=== PATIENT | male | born 1950 ===

== ENCOUNTER 2017-04-21 12:38 | Emergency (ER) | payer MEDICARE ==
[2017-04-21 12:55] VITALS: BP 146/72
--- NOTE | 2017-04-21 13:15 | UC ---
Upper Extremity HPI - History of Current Complaint Chief Complaint: UCUpperExtremity Stated Complaint: R WRIST INJURY Time Seen by Provider: 04/21/17 13:14 - Allergies/Home Medications Allergies/Adverse Reactions: Allergies Allergy/AdvReac Type Severity Reaction Status Date / Time No Known Allergies Allergy Verified 04/21/17 12:43 Home Medications: Home Medications Isosorbide (Bulk) [Isosorbide] 1 pow XX 04/21/17 [History] Telmisartan [Micardis] 20 mg PO 04/21/17 [History] PMH/Surg Hx/FS Hx/Imm Hx - Surgical History Surgical History: Yes Surgery Procedure, Year, and Place: BACK SURGERY 1967 - Family History Known Family History: Positive: Hypertension - Social History Alcohol Use: None Substance Use Type: None Smoking Status (MU): Never Smoked Tobacco - Immunization History Most Recent Influenza Vaccination: never Most Recent Tetanus Shot: 2005 Most Recent Pneumonia Vaccination: never Physical Exam Vital Signs: Initial Vital Signs Temp 97.5 F 04/21/17 12:43 Pulse 53 04/21/17 12:43 Resp 18 04/21/17 12:43 BP 146/72 04/21/17 12:43 Pulse Ox 100 04/21/17 12:43 Discharge - Discharge Plan Condition: Stable Disposition: HOME Referrals: Chai Villafuerte MD [Primary Care Provider] - Additional Instructions: If you develop a fever, SOB, chest pain, new or worsening symptoms - please call your PCP or go to the ED. Your blood pressure was high at todays visit. Please see your primary provider within 4 weeks for recheck and re-evaluation.
--- NOTE | 2017-04-21 13:54 | RAD ---
INDICATION: Right wrist injury. TECHNIQUE: 3 views of the right wrist were obtained. FINDINGS: There is diffuse soft tissue swelling. The bones are in normal alignment. There are faint renal lucent lines which project over the distal radius extending to the articular surface suggestive of a nondisplaced fracture. 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 IMPRESSION: PROBABLE NONDISPLACED FRACTURE OF THE DISTAL RADIUS.
--- NOTE | 2017-04-21 13:58 | UC ---
Eliza Rojas Alfonso, scribed for Pilar Spann MD on 04/21/17 at 1337 . Upper Extremity HPI - HPI Summary HPI Summary: This patient is a 67 year old M presenting to [facility] with a chief complaint of right wrist pain s/p a mechanical fall 1 week ago. Pt reports he was running backwards when he fell causing hyper extension of wrist on palm. The patient rates the aching pain 3/10 in severity. Symptoms alleviated by nothing. Patient reports limited ROM secondary to pain. Patient denies elbow pain, shoulder pain , head trauma, bleeding, finger numbness, and finger tingling. + hand edema no other injuries. Pt RHD. Pt came today because continued discomfort and swelling although reports improved Patients medication reviewed this visit. - History of Current Complaint Chief Complaint: UCUpperExtremity Stated Complaint: R WRIST INJURY Time Seen by Provider: 04/21/17 13:14 Hx Obtained From: Patient Onset/Duration: Sudden Onset, Lasting Weeks - 1, Still Present Severity Currently: Mild Pain Intensity: 3 Pain Scale Used: 0-10 Numeric Location Of Pain: Is Discrete @ - right wrist Aggravating Factor(s): Movement, Flexion, Extension Alleviating Factor(s): Nothing Associated Signs And Symptoms: Positive: Other - Patient denies elbow pain, shoulder pain, head trauma, bleeding, finger numbness, and finger tingling. - Allergies/Home Medications Allergies/Adverse Reactions: Allergies Allergy/AdvReac Type Severity Reaction Status Date / Time No Known Allergies Allergy Verified 04/21/17 12:43 Home Medications: Home Medications Isosorbide (Bulk) [Isosorbide] 1 pow XX 04/21/17 [History] Telmisartan [Micardis] 20 mg PO 04/21/17 [History] PMH/Surg Hx/FS Hx/Imm Hx Previously Healthy: No Cardiovascular History: Hypertension, Other - stable angina Other Cardiovascular History: stable angina - Surgical History Surgical History: Yes Surgery Procedure, Year, and Place: BACK SURGERY 1967 - Family History Known Family History: Positive: Hypertension - Social History Alcohol Use: None Substance Use Type: None Smoking Status (MU): Never Smoked Tobacco - Immunization History Most Recent Influenza Vaccination: never Most Recent Tetanus Shot: 2005 Most Recent Pneumonia Vaccination: never Review of Systems Constitutional: Other - Negative fever. Musculoskeletal: Other: - right wrist pain; negative elbow pain, shoulder pain, head trauma, bleeding Neurological: Other - Negative finger numbness, and finger tingling. All Other Systems Reviewed And Are Negative: Yes Physical Exam Triage Information Reviewed: Yes Appearance: Well-Appearing, No Pain Distress, Well-Nourished Vital Signs: Initial Vital Signs Temp 97.5 F 04/21/17 12:43 Pulse 53 04/21/17 12:43 Resp 18 04/21/17 12:43 BP 146/72 04/21/17 12:43 Pulse Ox 100 04/21/17 12:43 Vital Signs Reviewed: Yes Eyes: Positive: Conjunctiva Clear ENT: Positive: Hearing grossly normal Neck exam: Normal Neck: Positive: Supple, Nontender, No Lymphadenopathy Respiratory Exam: Normal Respiratory: Positive: Chest non-tender, Lungs clear, Normal breath sounds, No respiratory distress, No accessory muscle use Cardiovascular Exam: Normal Cardiovascular: Positive: RRR, No Murmur, Pulses Normal, Other: - 2+ radial, 2+ ulnar CBT <2 sec all fingers Abdominal Exam: Normal Abdomen Description: Positive: Nontender, No Organomegaly, Soft Musculoskeletal: Positive: Other: - right elbow with discomfort in wrist + TTP along lateral aspect dorsum right wrist no crepitus No pain along carpals, metacarpals and phalanges no snuffbox pain Neurological Exam: Normal Neurological: Positive: Alert, Other: - + thumb up, a ok, finger spread, finger cross + gross sensation Psychological Exam: Normal Psychological: Positive: Normal Response To Family Skin: Positive: Other - + diffuse edema right hand and wrist - primarily dorsal surface resilving ecchymosis Procedures - Splinting Location: right wrist - short arm, volar Hand-Made Type: fiberglass Splint: volar Pre-Proc Neuro Vasc Exam: normal Post-Proc Neuro Vasc Exam: normal Diagnostics - Laboratory Diagnostic Studies Completed/Ordered: Wrist XR reveals, per radiologist, PROBABLE NONDISPLACED FRACTURE OF THE DISTAL RADIUS. Upper Extremity Course/Dx - Course Course Of Treatment: Pt with pain in right wrist - dominant. imaging with + intrarticular fracture. volar splint. sling. elevate. ortho referral. pt comfortable and in agreement with plan - Differential Dx/Diagnosis Provider Diagnoses: Right intrartcular distal radius fx Discharge - Discharge Plan Condition: Stable Disposition: HOME Patient Education Materials: Wrist Fracture in Adults (ED) Referrals: Kaylee Lee MD [Medical Doctor] - Chai Villafuerte MD [Medical Doctor] - Additional Instructions: - Wear splint until you are seen by the follow-up appointment - Okay to apply ice (wrapped in a towel) 20 minutes at a time, 2-3 times a day for pain or swelling - elevate your arm to help with swelling and pain - Call the orthopedic doctor to schedule a follow-up appointment. Contact the orthopedic provider or return with questions or concerns The documentation as recorded by the Eliza ordoñez Alfonso accurately reflects the service I personally performed and the decisions made by , Pilar Spann MD.
== END 2017-04-21 14:08 | disposition home or self-care (01) ==
LOC: UCEAST 12:38
DX: S69.91XA Unspecified injury of right wrist, hand and finger(s), initial encounter (principal); W19.XXXA Unspecified fall, initial encounter; Y93.02 Activity, running; Y92.9 Unspecified place or not applicable; I20.8 Other forms of angina pectoris; I10 Essential (primary) hypertension
CPT/HCPCS: 99211; G0463